=== PATIENT | female | born 2000 | race Caucasian/White ===

== ENCOUNTER 2020-02-21 12:27 | Outpatient (REF) | payer MEDICAID, SELFPAY | END 2020-02-21 12:28 | disposition home or self-care (01) | LOC: HO.LAB 12:27 | PROVIDERS: Visit Provider Internal Medicine | DX: Z20.828 Contact with and (suspected) exposure to other viral communicable diseases (principal) | CPT/HCPCS: C9803; U0003 ==

== ENCOUNTER 2020-06-16 09:23 | Emergency (ER) | payer MEDICAID, SELFPAY ==
[2020-06-16 09:33] VITALS: BP 151/73; PULSE 110; RESP 18; TEMP 37.2; O2SAT 100; BMI 22.6
[2020-06-16] MEDS: Diphth,Pertus(ACell),Tet Adult 0.5 ML SYRINGE IM (10:13)
[2020-06-16] MEDS: Lidocaine HCl 2 % MPF 5 ML VIAL INFILTRATI (10:13)
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
[2020-06-16] MEDS: Acetaminophen 325 MG TABLET 650 MG PO (10:44)
== END 2020-06-16 10:47 | disposition home or self-care (01) ==
PROVIDERS: Emergency Provider Emergency Medicine; PCP Family Medicine
DX: S01.01XA Laceration without foreign body of scalp, initial encounter (principal); G44.309 Post-traumatic headache, unspecified, not intractable; W51.XXXA Accidental striking against or bumped into by another person, initial encounter; Y93.9 Activity, unspecified; Y92.009 Unspecified place in unspecified non-institutional (private) residence as the place of occurrence of the external cause; Y99.9 Unspecified external cause status
CPT/HCPCS: 12001; 90471; 90715; 99283; 99284

== ENCOUNTER 2020-06-29 14:54 | Emergency (ER) | payer MEDICAID, SELFPAY ==
[2020-06-29 15:24] VITALS: BP 106/62; PULSE 70; RESP 18; TEMP 36.8; O2SAT 99; BMI 20.7
--- NOTE | 2020-06-29 15:28 | ED.WOUNDLAC ---
HPI - Wound/Laceration General Chief Complaint: Skin/Abscess/Foreign Body Stated Complaint: SUTURE REMOVAL Time Seen by Provider: 06/29/20 15:28 Source: patient Mode of arrival: ambulatory Limitations: no limitations History of Present Illness HPI narrative: Scalp laceration repaired with 4 bo on June 16 here as instructed for staple removal to the scalp has no complaints. Has been doing well. Onset (ago): day(s) Location: scalp Place: home Patient tetanus UTD: Yes Context: accidental Associated symptoms: none Related Data Allergies Allergy/AdvReac Type Severity Reaction Status Date / Time No Known Allergies Allergy Verified 06/16/20 09:36 Review of Systems Review of Systems: Constitutional: No Weight loss, No Fever, No Chills, No Night Sweats, No Fatigue, No Malaise ENT/Mouth: No Hearing loss, No Ear Pain, No Nasal Congestion, No Sinus Pain, No Hoarseness, No sore throat, No Rhinorrhea, No Swallowing Difficulty Eyes: Negative Cardiovascular: Negative Respiratory: Negative Gastrointestinal: Negative Genitourinary: Negative Musculoskeletal: No joint pain, No Myalgias, No Joint Swelling Skin: No Skin Lesions, No rash Neuro: No Weakness, No Numbness, No Paresthesias, No Loss of Consciousness, No Dizziness, No Headache Psych: No Social Issues Heme/Lymph: Negative negative No Polyuria, No Polydipsia, No Temperature Intolerance Yes all other systems are reviewed and are negative [facility] Past Medical History Medical History (Updated 06/29/20 @ 15:31 by Marcelo Harmon NP) No known health problems Social History Social History Advance Directives: No Advance Directives Information Provided: No Physical Exam Vital Signs: Vital Signs: Last Vital Signs Temp 98.3 F 06/29/20 15:24 Pulse 70 06/29/20 15:24 Resp 18 06/29/20 15:24 BP 106/62 06/29/20 15:24 Pulse Ox 99 06/29/20 15:24 Body Mass Index 20.7 Reviewed Const: General: cooperative and healthy appearing; No acute distress or intoxicated appearing Nutritional Appearance: average body habitus Orientation/consciousness: patient oriented x3 HENMT: Head: Yes normal to inspection Head images: 1. Bo to a well-healed appearing previously lacerated area. There are 4 ob intact. No induration, discharge, erythema, TTP. Ears: hearing grossly normal bilaterally Eyes: General: appearance normal, both eyes and all related structures Visual Soto: normal visual soto by confrontation Neck: Neck: Yes normal visual inspection, No positive Brudzinski's sign, No positive Kernig's sign and No tender Thyroid: Thyroid normal : General: Yes no CVA tenderness Back/Spine/Pelvis: Back: no CVA tenderness Skin: General skin exam: no rashes or lesions noted Neuro: General: patient oriented x3 Extrem: General: Yes normal to inspection Course Course Course Narrative: 4 bo removed from the scalp. Home care, return, follow-up instructions provided. No complaints. Stable for discharge. Discharge Plan Discharge Clinical Impression: Encounter for removal of bo Patient Disposition: Home, Self-Care Instructions: Stitches Removal (ED) Referrals: Krystyna aDly DO [Primary Care Provider] - 2 weeks
== END 2020-06-29 15:37 | disposition home or self-care (01) ==
PROVIDERS: Emergency Provider Emergency Medicine; PCP Family Medicine
DX: Z48.02 Encounter for removal of sutures (principal); S01.01XD Laceration without foreign body of scalp, subsequent encounter; X58.XXXD Exposure to other specified factors, subsequent encounter
CPT/HCPCS: 99283

== ENCOUNTER → 2020-09-23 10:08 | Outpatient (BNVA) | payer MEDICAID, SELFPAY | PROVIDERS: Visit Provider Advanced Practice Midwife | DX: N91.1 Secondary amenorrhea (principal); R63.6 Underweight | CPT/HCPCS: 81025; 99202 ==

== ENCOUNTER 2020-11-21 21:53 | Emergency (ER) | payer MEDICAID, SELFPAY ==
[2020-11-21 22:28] VITALS: BP 118/64; PULSE 84; RESP 16; TEMP 36.9; O2SAT 98; BMI 18.3
[2020-11-21 23:52] LABS: Influenza A PCR NEGATIVE (Negative); Influenza B PCR NEGATIVE (Negative); Resp Syncy Virus RNA Qual PCR NEGATIVE (Negative); SARS COV2 PCR INHOUSE NEGATIVE (Negative)
--- NOTE | 2020-11-22 00:06 | ED.URI ---
HPI - URI/Sore Throat General Chief Complaint: Upper Respiratory Symptoms Stated Complaint: flu like Time Seen by Provider: 11/21/20 23:23 Source: patient Mode of arrival: ambulatory Limitations: no limitations History of Present Illness HPI Narrative: 20 y/o healthy female presenting with nasal congestion, sore throat, dry cough and body aches for the last 1 week. She presents with her boyfriend who has similar symptoms. She has been taking OtC cold medication with brief improvement in her symptoms. She is eating and drinking normally. No fever, SOB or WALKER. She is not vaccinated against COVID-19. MD elicited complaint: cough, sore throat and nasal congestion Onset (ago): week(s) (1) Consistency: constant Severity: moderate Description of mucous: clear Able to tolerate fluids by mouth: Yes Exacerbating factors: exertion Relieving factors: OTC cold medicine and rest Context: sick contacts Associated symptoms: chills, myalgias, rhinorrhea, nasal congestion, sore throat and cough Treatments prior to arrival: none Related Data Home Medications Medication Instructions Recorded Confirmed No Known Home Meds 09/23/20 09/23/20 Allergies Allergy/AdvReac Type Severity Reaction Status Date / Time No Known Allergies Allergy Verified 09/23/20 10:17 Review of Systems Review of Systems: Constitutional: No Fever, + Chills ENT/Mouth: + sore throat, + Rhinorrhea, No Swallowing Difficulty Eyes: No Eye Pain, No Swelling, No Redness Cardiovascular: No Chest Pain, No SOB, No Orthopnea, No Edema Respiratory: +Cough, No Sputum, No Wheezing, No dyspnea Gastrointestinal: No Nausea, No Vomiting, No Diarrhea, No abdominal Pain Genitourinary: No Dysuria, No Urinary Frequency, No Hematuria Musculoskeletal: No joint pain, + Myalgias Skin: No Skin Lesions, No rash Neuro: No Weakness, No Numbness, No Dizziness, + Headache Heme/Lymph: No Bruising, No Lymphadenopathy PMFSH Past Medical History Medical History No known health problems Social History Social History (Updated 09/23/20 @ 10:21 by Prema Shah CMA) Alcohol intake: current Alcohol intake frequency: holidays/special occasions only Patient Tobacco Use Status: Never used Tobacco Substance Use Type: Marijuana Advance Directives: No Advance Directives Information Provided: No Gender identity: Female Physical Exam Vital Signs: Vital Signs: Last Vital Signs Temp 98.4 F 11/21/20 22:28 Pulse 84 11/21/20 22:28 Resp 16 11/21/20 22:28 BP 118/64 11/21/20 22:28 Pulse Ox 98 11/21/20 22:28 Body Mass Index 18.3 Appearance: Alert. Oriented X3. No acute distress. Eyes: Pupils equal, round and reactive to light. ENT: Pharynx with mild generalized erythema, tonsils without swelling, ertythema or exudate, uvula midline. nasal turbinates erythematous with clear nasal discharge. Neck: Normal inspection. Neck supple. CVS: Normal heart rate and rhythm. Pulses normal. Respiratory: No respiratory distress. Breath sounds normal. Skin: Skin warm and dry. Normal skin color. Normal skin turgor. No rashes. Extremities: No lower extremity edema. No calf tenderness Neuro: Oriented X 3. Nonfocal. steady gait Course Course Course Narrative: 20 yo female presenting with URI symptoms x1 week. +sick contacts. Her VS are normal. She is NEGATIVE for COVID, FLu and RSV. Her symptoms are most likely viral and she is stable for discharge with supportive care. MDM - URI/Sore Throat Lab Data Labs: Lab Results 11/21/20 Range/Units 23:00 Coronavirus (PCR) NEGATIVE (Negative) Influenza Type A (PCR) NEGATIVE (Negative) Influenza Type B (PCR) NEGATIVE (Negative) RSV RNA Qual (PCR) NEGATIVE (Negative) Critical Care Time Critical Care Time Critical Care Time: No Discharge Plan Discharge Clinical Impression: Upper respiratory infection Qualifiers: URI type: unspecified viral URI Qualified Code(s): J06.9 - Acute upper respiratory infection, unspecified Patient Disposition: Home, Self-Care Instructions: Upper Respiratory Infection (ED) Additional Instructions: You were negative for COVID-19, Flu and RSV. Recommend getting over the counter Sudafed for your nasal congestion - you need to ask the pharmacist for this. Rest and drink plenty of fluids. Take over the counter cold/flu medications as needed for your symptoms. Follow up with your doctor next week. If you develop new or worsening symptoms call 911 or come back to the ER for further evaluation. Prescriptions: No Action No Known Home Meds RF: 0
== END 2020-11-22 00:43 | disposition home or self-care (01) ==
PROVIDERS: Emergency Provider Emergency Medicine; PCP Family Medicine
DX: J06.9 Acute upper respiratory infection, unspecified (principal); Z20.822 Contact with and (suspected) exposure to COVID-19; J02.9 Acute pharyngitis, unspecified
CPT/HCPCS: 0241U; 36415; 99283

== ENCOUNTER 2023-03-07 09:10 | Outpatient (REF) | payer MEDICAID, SELFPAY ==
[2023-03-07 12:25] LABS: HCG Quantitative 19626 mIU/mL
== END 2023-03-07 09:11 | disposition home or self-care (01) ==
LOC: HO.HHCL 09:10
PROVIDERS: Visit Provider Family Medicine
DX: Z34.90 Encounter for supervision of normal pregnancy, unspecified, unspecified trimester (principal)
CPT/HCPCS: 36415; 84702

== ENCOUNTER 2025-01-27 14:26 | Outpatient (REF) | payer MEDICAID, SELFPAY ==
--- NOTE | ~2025-01-27 | XR_ITS ---
EXAMINATION: XR ABDOMEN COMPLETE CLINICAL INDICATION: PAIN OF UPPER ABDOMEN,RIGHT FLANK TENDER;, NODULE.PT STATES SHE HAS NOTICED THIS BUMP IN OCTOBER COMPARISON: None available. TECHNIQUE: 2 views of the abdomen, upright and supine. FINDINGS: There is gas throughout the colon and small bowel stool in the rectum and sigmoid colon. There is also gas in the stomach. This is similar calcifications in the pelvis are likely phleboliths. No other calcifications are seen in the soft tissues. XR/XR abdomen 3V IMPRESSION: Unremarkable Electronically signed by: Mars Zepeda MD 01/27/2025 03:41 PM EST
--- OUTSIDE RECORDS SUMMARY | 2025-01-27 13:15 | XMS_ITS | Encounter Summary ---
Author Organization [employer] Address [address] [facility] [address] [place] [address] Care Team Providers Care Title Assistant Name Role Phone Krystyna Daly Primary Care Provider + [phone] Encounter Details Date Type Department Care Team ([facility] st Contact Info) Description 01/27/2025 1:15 PM EST Office Visit [facility] MED[facility]INE [address] [place] [address] Lisa Tyler MD [address] [place], [place] [phone] Pain of upper abdomen (Primary Dx); DUB (dysfunctional uterine bleeding) Social History Tobacco Use Types Packs/Day Years Used Date Smoking Tobacco: Never Smokeless Tobacco: Never Alcohol Use Standard Drinks/Week Comments Never 0 (1 standard drink = 0.6 oz pur e alcohol) Depression Answer Date Recorded Patient Health Questionnaire-9 Score 1 12/11/2023 Patient Health Questionnaire-9 Score 1 12/11/2023 Last PHQ-9: Questionnaire Data Not on file 0 12/11/2023 Housing Stability Answer Date Recorded What is your housing situation today? I have sacha crow 12/04/[address] you li ve. Do you have problems with any of the following? None of the above 12/04/2023 Food Insecurity Answer Date Recorded Within the past 12 months, y ou worried that your food would run out before you got money to buy more: Never True 12/04/2023 Within the past 12 months,th e food you bought just didn't last and you didn't have enough money to get more: Never True Transportation Answer Date Recorded In the past 12 months, has l ack of transportation kept you from medical appts, meetings, work or from getting things needed for daily living? No 12/04/2023 Utilities Answer Date Recorded In the past 12 months, has t he electric, gas, oil or water company threatened to shut off services in your home? No 12/04/2023 Depression Answer Date Recorded Patient Health Questionnaire-2 Score 0 12/11/2023 Internet Access Answer Date Recorded Internet Access Q1 Yes 12/04/2023 Internet Access Q2 Not on file 12/04/2023 Comments Unknown Sex and Gender Information Value Date Recorded Sex Assigned at Female 01/17/2022 10:17 AM EDT Legal Sex Female 10:17 AM EDT Gender Identity Female 01/17/2022 10:17 AM EDT Sexual Orientation Straight 01/17/2022 10 :17 AM EDT documented as of this encounter Last Filed Vital Signs Vital Sign Reading Time Taken Comments Blood Pressure 108/58 01/27/2025 1:43 PM EST Pulse 77 01/27/2025 1:43 PM EST Temperature 36.9 C (98.5 F) 01/27/2025 1:43 PM EST Respiratory Rate 14 01/27/2025 1:43 PM EST Oxygen Saturation 98% 01/27/2025 1:43 PM EST Inhaled Oxygen Concentration - - Weight 45.4 kg (100 lb) 01/27/2025 1:43 PM EST Height 154.9 cm (5' 1 ) 01/27/2025 1:43 PM EST Body Mass Index 18.89 01/27/2025 1:43 PM EST documented in this encounter Plan of Treatment Not on file documented as of this encounter Procedures Procedure Name Priority Date/Time Associated Diagnosis Comments XR ABDOMEN 3+ VIEWS Routine 01/27/2025 2 :57 PM EST Pain of upper abdomen POCT , URINE Routine 01/27/2025 2:20 PM EST Pain of upper abdomen DUB (dysfunctional uterine bleeding) documented in this encounter Results * XR Abdomen 3+ Views (01/27/2025 2:57 PM EST) Anatomical Region Laterality Modality Abdomen Radiographic Nilsa ging 01/27/2025 2:57 PM EST Narrative 01/27/2025 3:44 PM EST [facility] [address] [place] [address] XRay Report Signed Patient: Elida Mart MR#: [id number] [birth year] : 2000 Acct:[id number] Age/Sex: 24 / F ADM Date: 01/27/25 Loc: HO.HHCX Attending Dr: Lisa Tyler MD Ordering Physician: Lisa Tyler MD Date of Service: 01/27/25 Procedure(s): XR abdomen 3V Accession Number(s): [id number] cc: Lisa Tyler MD; Krystyna Daly DO Reason for Exam: right flank tender nodule EXAMINATION: XR ABDOMEN COMPLETE CLINICAL INDICATION: PAIN OF UPPER ABDOMEN,RIGHT FLANK TENDER;, NODULE.PT STATES SHE HAS NOTICED THIS BUMP IN OCTOBER COMPARISON: None available. TECHNIQUE: 2 views of the abdomen, upright and supine. FINDINGS: There is gas throughout the colon and small bowel stool in the rectum and sigmoid colon. There is also gas in the stomach. This is similar calcifications in the pelvis are likely phleboliths. No other calcifications are seen in the soft tissues. XR/XR abdomen 3V IMPRESSION: Unremarkable Electronically signed by: Mars Zepeda MD 01/27/2025 03:41 PM EST Dictated By: Mars Zepeda MD Signed By: <Electronically signed by Mars Zepeda MD in OV> 01/27/25 1541 DD/ 1457 TD/TT: 01/27/25 1505 [employer] Officer: Procedure Note Donotuseinterpreter, Image - 01/27/2025 [facility] [address] [place] [address] XRay Report Signed Patient: Elida Mart JMR#: [id number] [birth year] : 2000Acct:[id number] Age/Sex: 24 / FADM Date: 01/27/25 Loc: HO.HHCX Attending Dr: Lisa Tyler MD Ordering Physician: Lisa Tyler MD Date of Service: 01/27/25 Procedure(s): XR abdomen 3V Accession Number(s): [id number] cc: Lisa Tyler MD; Krystyna Daly DO Reason for Exam: right flank tender nodule EXAMINATION: XR ABDOMEN COMPLETE CLINICAL INDICATION: PAIN OF UPPER ABDOMEN,RIGHT FLANK TENDER;, NODULE.PT STATES SHE HAS NOTICED THIS BUMP IN OCTOBER COMPARISON: None available. TECHNIQUE: 2 views of the abdomen, upright and supine. FINDINGS: There is gas throughout the colon and small bowel stool in the rectum and sigmoid colon. There is also gas in the stomach. This is similar calcifications in the pelvis are likely phleboliths. No other calcifications are seen in the soft tissues. XR/XR abdomen 3V IMPRESSION: Unremarkable Electronically signed by: Mars Zepeda MD 01/27/2025 03:41 PM EST RP Dictated By: Mars Zepeda MD Signed By: <Electronically signed by Mars Zepeda MD in OV> 01/27/25 1541 DD/ 1457 TD/TT: 01/27/25 [employer] Officer: Lisa Tyler MD IMG XR PROCEDURES Edited Result - Final * POCT Urine (01/27/2025 2:20 PM EST) Preg Test, Ur Negative Negative, Indeterminate, None Detected, Invalid, Specimen unsatisfactory for evaluation, Weakly Positive, 2+ QC Media Lot # [id number] Lot# Expiration Date [id number] Urine 01/27/2025 2:20 PM EST Lisa Tyler MD POINT OF CARE TEST ENTER /EDIT ORDERABLES Final Result documented in this encounter Visit Diagnoses Diagnosis Pain of upper abdomen- Primary DUB (dysfunctional uterine bleeding) Other disorder of menstruation and other abnormal bleeding from female genital tract documented in this encounter Additional Health Concerns Assessment Noted Time PHQ-9 Depression Total Score: 1 12/11/19 24 2:31 PM EDT documented as of this encounter Care Teams Title Assistant Relationship Specialty Start Date End Date Krystyna Daly DO [address] [place] [address] PCP - General Family Medicine 05/18/18 documented as of this encounter
--- OUTSIDE RECORDS SUMMARY | 2025-01-27 16:46 | XMS_ITS | Encounter Summary ---
Author Organization [employer] Address [address] [facility] [address] [place] [address] Care Team Providers Care Cooker Mechanic Name Role Phone Krystyna Daly DO Primary Care Provider + [phone] Reason for Visit * Reason Onset Date Comments Referral 03/17/2023 Encounter Details Date Type Department Care Team ([facility] st Contact Info) Description 03/17/2023 Telephone [facility] MEDICINE [address] [place], [place] [phone] Krystyna Daly DO [address] [place], [place] [phone] Referral Social History Tobacco Use Types Packs/Day Years Used Date Smoking Tobacco: Never Smokeless Tobacco: Never Housing Stability Answer Date Recorded What is your housing situation today? I have sacha crow 01/17/[address] you li ve. Do you have problems with any of the following? None of the above 01/17/2023 Food Insecurity Answer Date Recorded Within the past 12 months, y ou worried that your food would run out before you got money to buy more: Never True 01/17/2023 Within the past 12 months,th e food you bought just didn't last and you didn't have enough money to get more: Never True Utilities Answer Date Recorded In the past 12 months, has t he electric, gas, oil or water company threatened to shut off services in your home? No 01/17/2023 Comments Unknown Sex and Gender Information Value Date Recorded Sex Assigned at Female 01/17/2022 10:17 AM EDT Legal Sex Female 10:17 AM EDT Gender Identity Female 01/17/2022 10:17 AM EDT Sexual Orientation Straight 01/17/2022 10 :17 AM EDT documented as of this encounter Miscellaneous Notes * Telephone Encounter - Jaime Mcclain - 03/17/2023 8:42 AM EST Tc from patient calling to request the referral for [employer]ENT to be sent to [facility] [employer] [facility] at [address] [place] [address] documented in this encounter Plan of Treatment Not on file documented as of this encounter Visit Diagnoses Not on filedocumented in this encounter Care Teams Cooker Mechanic Relationship Specialty Start Date End Date Krystyna Daly DO [address] [place] [id number] PCP - General Family Medicine 05/18/18 documented as of this encounter
--- OUTSIDE RECORDS SUMMARY | 2025-01-27 16:46 | XMS_ITS | Encounter Summary ---
Author Organization [employer] Address [address] [place] [address] 7 [place] [address] Care Team Providers Care Development Technician Name Role Phone Krystyna Daly DO Primary Care Provider + [phone] Reason for Visit * Reason Onset Date Comments Nurse Triage 01/22/2025 Encounter Details Date Type Department Care Team ([facility] st Contact Info) Description 01/22/2025 Telephone [facility] [address] [place], [place] [phone] Krystyna Daly DO [address] [place] [address] Nurse Triage Social History Tobacco Use Types Packs/Day Years Used Date Smoking Tobacco: Never Smokeless Tobacco: Never Depression Answer Date Recorded Patient Health Questionnaire-9 [...] encounter Miscellaneous Notes * Telephone Encounter - Karen Ashley RN - 01/27/2025 9:00 AM EST TC placed to pt. Informed pt. PCP is out for today's sick appointment and agrees to r/s to today at1:15pm with Dr. Tyler * Telephone Encounter - Jackie Hernandez RN - 01/22/2025 12:35 PM EST Return call placed to the pt in regard to reported skin lump. The pt states that ever since giving around a year ago she has been experiencing a hard bump located on the right rib. The lump hasnot grown in size and is not red, draining and pain is minimal. Aggravating factors include laying on it. Pain is minimal and only rated around a 4/10. Pt described the feeling as something going into my body every time I put pressure on it. The pt was looking to schedule a PE with PCP but advised that a sick onsite would be easier to schedule and more appropriate to address current concerns. Thept was agreeable to scheduling with PCP on 01/27 for further evaluation of skin lump. Protocol Used: Skin Lump or Localized Swelling (Adult) Protocol-Based Disposition: See in Office or Video Visit within 3 Days Video visit not offered Positive Triage Questions: * Small swelling or lump present > 1 week * Patient wants to be seen * Small swelling or lump present < 1 week * All higher-acuity triage questions were negative * Telephone Encounter - Wilianaaron Hill - 01/22/2025 12:00 PM EST Symptom: Skin Lump Outcome: Schedule an appointment to be seen within 3 days Reason: Caller denied all higher acuity questions Please contact pt at [phone] documented in this encounter Plan of Treatment Not on file documented as of this encounter Visit Diagnoses Not on filedocumented in this encounter Additional Health Concerns Assessment Noted Time PHQ-9 Depression Total Score: 1 12/11/19 24 2:31 PM EDT documented as of this encounter Care Teams Development Technician Relationship Specialty Start Date End Date Krystyna Daly DO [address] [place] [address] PCP - General Family Medicine 05/18/18 documented as of this encounter
--- OUTSIDE RECORDS SUMMARY | 2025-01-27 16:46 | XMS_ITS | Clinical Summary ---
Author Organization [employer] Address [address] [place] [address] [address] [place] [address] Care Team Providers Care Parts Person Name Role Phone Krystyna Daly DO Primary Care Provider Allergies No known active allergies Medications Vit-Fe Fumarate-FA ( Vitamins) 28-0.8 MG tablet TAKE 1 TABLET BY MOUTH DAILY IN THE MORNING 90 tablet 3 Active Additional Information Patient not taking.Reported on 01/27/2025 Active Problems Problem Noted Date Diagnosed Date Pain of upper abdomen 01/27/2025 DUB (dysfunctional uterine bleeding) 01/27/2025 Annual physical exam 12/11/2023 Assessment & Plan (12/11/2023 2:57 PM EDT): -annual exam done today 11/2023 for work -advised pt to take prenatals while not taking now -2021 Quantiferon neg ,-07/2022 MMRV immune -pap smear 07/2022 Neg --has apt w [employer] this week pr pt -contraception: none, refuse contraception now -advised to discuss w [employer] ,advised condom use -vaccines s/p hep A x 2, hep B x 3,HPV x2, meningococcal vaccine x2, MMRx2,COVID 19 x2,varicella x2, Tdap 07/2023 -- Flu and COVID 19 vaccine offered today -refused both -labs x annual exam today -pt agreed to have STI testing including HIV to have for baseline --will call pt w results 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 Assessment & Plan (12/11/2023 2:57 PM EDT): congenital nevus,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 A derm referral done today. Eczema may flare through the winter with cold weather or in the summer heat, or at times of stress Depression 08/05/2022 Assessment & Plan (12/11/2023 2:57 PM EDT): PHQ9 0 ,KELLY 0,reports feeling well now Resolved Problems Problem Noted Date Diagnosed Date Resolved Date Unintentional weight loss 08/05/2022 Underweight 08/05/2022 08/05/2022 Headache 02/16/2017 08/05/2022 Overview (08/05/2022): 02/16/17- to keep diary and return in a month Encounters Date Type Department Care Team Description 01/27/2025 1:15 PM EST Office Visit [facility] [address] [place] [phone] Lisa Tyler MD Pain of upper abdomen (Primary Dx); DUB (dysfunctional uterine bleeding) 01/27/2025 Travel 01/22/2025 Telephone [facility] [address] [place] [phone] Krystyna Daly DO Nurse Triage from Last 3 Months Immunizations Immunization Administration Dates Next Due DTaP 09/02/2004, 2,02/20/2001,12/15,2000 DTaP / HiB / IPV 01/09/2002, 1,2000,10/05 HPV 9-Valent 12/26/2014,10/04/2013 HPV, Quadrivalent 10/04/2013 Hep A, Unspecified 06/27/2012 Hep A, ped/adol, 2 dose 06/27/2012,04/30/2009 Hep B, Adolescent or Pediatric 05/21/2001,2000,2000 Hep B, Unspecified 05/21/2001,2000 Hib (HbOC) 01/09/2002, 1,2000,10/05 IPV 09/02/2004, 1,2000,10/05 Influenza injectable quadriv alent preservative free 05/23/2019 MMR 09/02/2004,01/09/2002 Meningococcal MCV4P ACYW-135 02/16/2017,06/28/19 13 Novel [id number], preservative-free 04/30/2009 PPD Test 08/14/2001 Pneumococcal Conjugate PCV 13 2002 ,02/20/2001,2000,10/05 Pneumococcal Conjugate PCV 7 2002, 02/20/2001,2000,10/05 Tdap 08/11/2023,06/16/2020,06/27/2012 Varicella 04/30/2009,08/14/2001 Family History Medical History Relation Name Comments Asthma Brother Depression Father Coronary artery disease Maternal Grandfather Anxiety disorder Mother Bipolar disorder Mother Depression Mother Relation Name Status Comments Brother Father Maternal Grandfather Mother Social History Tobacco Use Types Packs/Day Years Used Date Smoking Tobacco: Never Smokeless Tobacco: Never Tobacco Cessation:Counseling Given: Not Answered Alcohol Use Standard Drinks/Week Comments Never 0 (1 standard drink = 0.6 oz pur e alcohol) Depression Answer Date Recorded Patient Health Questionnaire-9 Score 1 12/11/2023 Patient Health Questionnaire-9 Score 1 12/11/2023 Last PHQ-9: Questionnaire Data Not on file 0 12/11/2023 Housing Stability Answer Date Recorded What is your housing situation today? I have sacha sing 12/04/[address] you li [...] Orientation Straight 01/17/2022 10 :17 AM EDT Last Filed Vital Signs Vital Sign Reading [...] Mass Index 18.89 01/27/2025 1:43 PM EST Plan of Treatment Health Maintenance Due Date Last Done Comments Dental Oral Exam 2000 Dental Prophylaxis 2000 Dental X-Ray: Bitewings 2000 Dental X-Ray: Full Mouth 2000 Disability Screening 2000 Alcohol/Substance Use Screening 2012 Family Planning (PISQ) 07/27/2015 COVID-19 Vaccine ( season) 2024 03/15/2021, 11/22/2020 Influenza Vaccine (#1) 2024 05/23/2019, 2009 SDOH Screening 12/03/2024 12/04/2023 Depression Screening 12/10/2024 12/11/2023, 12/11/19 24 Pap Smear 08/05/2025 08/05/2022, 08/05/2022 Tobacco Screening 01/27/2026 01/27/2025 DTaP/Tdap/Td Vaccines (9 - Td or Tdap) 08/10/2033 08/11/2023, 06/16/2020, 06/27/2012, Additional history exists Zoster Vaccines (1 of 2) 2050 RSV Patients and Patients Aged 60 years or older (1 - 1-dose 75+ series) 07/27/2075 Hepatitis B Vaccines Completed 05/21/2001, 05/21/2001, 2000, Additional history exists HIB Vaccines Completed 01/09/2002, 12/19, 02/20/2001, Additional history exists Pneumococcal Vaccine: Pediatrics (0 to 5 Years) and At-Risk Patients (6 to 49) Years Aged Out 2002, 2002, 02/20/2001, Additional history exists No longer eligible based on patient's age to complete this topic IPV Vaccines Completed 09/02/2004, 12/19, 02/20/2001, Additional history exists Hepatitis A Vaccines Completed 06/27/2012, 06/27/2012, 04/30/2009 HPV Vaccines Completed 12/26/2014, 09/17, 10/04/2013 Meningococcal Vaccine Completed 02/16/2017, 013 HIV Screening Completed 08/05/2022, 07/18, 2021 Hepatitis C Screening Completed 08/05/2022, 022 Meningococcal B Vaccine Aged Out No l onger eligible based on patient's age to complete this topic RSV under 20 months Aged Out No longe r eligible based on patient's age to complete this topic Rotavirus Vaccines Aged Out No longer eligible based on patient's age to complete this topic Procedures Procedure Name Priority Date/Time Associated Diagnosis Comments XR ABDOMEN 3+ VIEWS Routine 01/27/2025 2 :57 PM EST Pain of upper abdomen POCT , URINE Routine 01/27/2025 2:20 PM EST Pain of upper abdomen DUB (dysfunctional uterine bleeding) HEPATITIS C AB W/RFL RNA, PCR W/RFL GENOTYPE,LIPA Routine 08/05/2022 9:45 AM EDT Pap smear for cervical cancer screening HIV 1 RNA, QUANTITATIVE REAL TIME PCR Routine 08/05/2022 9:45 AM EDT Pap smear for cervical cancer screening THINPREP IMAGING PAP REFLEX HPV DNA Routine 08/05/2022 12:00 AM EDT from Last 3 Months or Most Recently Relevant to Health Maintenance Results * XR Abdomen 3+ Views (01/27/2025 2:57 PM EST) Anatomical Region Laterality Modality Abdomen Radiographic Nilsa ging 01/27/2025 2:57 PM EST Narrative 01/27/2025 3:44 PM EST [address] [address] XRay Report Signed Patient: Elida Mart MR#: [id number] 69 : 2000 Acct:[id number] Age/Sex: 24 / F ADM Date: 01/27/25 Loc: HO.HHCX Attending Dr: Lisa Tyler MD Ordering Physician: Lisa Tyler MD Date of Service: 01/27/25 Procedure(s): XR abdomen 3V Accession Number(s): [id number] cc: Lisa Tyler MD; Krystyna Daly DO [...] 01/27/25 1541 DD/ 1457 TD/TT: 01/27/25 1505 Girls Tennis Coach: Procedure Note Donotuseinterpreter, Image - 01/27/2025 [place] [address] XRay Report Signed Patient: Elida Mart JMR#: [id number] 69 : 2000Acct:[id number] Age/Sex: 24 / FADM Date: 01/27/25 Loc: HO.HHCX Attending Dr: Lisa Tyler MD Ordering Physician: Lisa Tyler MD Date of Service: 01/27/25 Procedure(s): XR abdomen 3V Accession Number(s): [id number] cc: Lisa Tyler MD; Krystyna Daly DO [...] 01/27/25 1541 DD/ 1457 TD/TT: 01/27/25 1505 Girls Tennis Coach: Lisa Tyler MD IMG XR PROCEDURES Edited Result - Final * POCT Urine (01/27/2025 2:20 PM EST) Preg Test, Ur Negative Negative, Indeterminate, None Detected, Invalid, Specimen unsatisfactory for evaluation, Weakly Positive, 2+ QC Media Lot # [id number] Lot# Expiration Date [id number] Urine 01/27/2025 2:20 PM EST Lisa Tyler MD POINT OF CARE TEST ENTER /EDIT ORDERABLES Final Result * Hepatitis C Antibody with Reflex to HCV RNA,PCR w/Reflex to Genotype, LiPA (08/05/2022 9:45 AM EDT) Hepatitis C Antibody NON-REACT CALLI NON-REACT CALLI [facility] Index 0.11 <1.00 [facility] Comment: HCV antibody was non-reactive. There is no laboratory evidence of HCV infection. In most cases, no further action is required. However, if recent HCV exposure is suspected, a test for HCV RNA (test code 49544) is suggested. For additional information, please refer to http://education.[employer].com.Socialite/faq/SUC043 (This link is being provided for informational/ educational purposes only.) 08/05/2022 9:45 AM EDT 08/05/2022 9:45 AM EDT Narrative [facility] - 08/09/2022 4:46 PM EDT FASTING:YES FASTING: YES Krystyna Daly DO LAB BLOOD ORDERABLES Final R esult [facility] [address], [place] [address] [facility] [employer] [address] [place] [address] * HIV-1 RNA, Quantitative, Real-Time PCR (08/05/2022 9:45 AM EDT) Pathologist [facility] HIV 1 RNA, QN PCR NOT DETECTED NOT DETECTED copies/mL [facility] [place] [facility] HIV 1 RNA, QN PCR NOT DETECTED NOT DETECTED Log copies/mL [facility] [place] [facility] Comment: This test was performed using Real-Time Polymerase Chain Reaction. Reportable Range: 20 copies/mL to 10,000,000 copies/mL (1.30 log copies/mL to 7.00 log copies/mL). Blood Venous blood specimen / Unknown 08/05/2022 9:45 AM EDT 08/05/2022 9:45 AM EDT [facility] 08/09/2022 4:46 PM EDT FASTING:YES FASTING: YES Krystyna Daly DO LAB BLOOD ORDERABLES Final R esult DANIKA Ramirez [address], [place] [address] [facility] [place] [facility] [address] [place] [phone] * ThinPrep Pap with Reflex to HPV DNA (08/05/2022 12:00 AM EDT) Pathologist [facility] Clinical Information: NONE GIVEN [facility] [place] [employer] LMP: NONE GIVEN [facility] [place] [employer] Prev. PAP: NONE GIVEN [facility] [place] [employer] Prev. BX: NONE GIVEN [facility] [employer] [facility] SOURCE: NONE GIVEN [facility] Statement Of Adequacy: [facility] [employer] Comment: Satisfactory for evaluation. Endocervical/transformation zone component present. Interpretation/ Result: Negative for intraepithelial lesion or malignancy. [facility] [place] [facility] Cytotechnologis t: [facility] [place] [employer] Comment: KF, CT(ASCP) CT screening location: [address] [address] Review [employer]otechnologis t: [facility] Comment: LOUANN, CT(ASCP) CT screening location: [address] [address] (Always Message) [employer] Comment: EXPLANATORY NOTE: The Pap is a screening test for cervical cancer. It is not a diagnostic test and is subject to false negative and false positive results. It is most reliable when a satisfactory sample, regularly obtained, is submitted with relevant clinical findings and history, and when the Pap result is evaluated along with historic and current clinical information. 08/05/2022 08/08/2022 7:4 4 AM EDT Narrative [facility] - 08/26/2022 3:00 PM EDT FASTING: UNKNOWN Krystyna Daly DO LAB CYTOLOGY ORDERABLES Thania spear Result [facility] [address], [place] [address] [facility] [place] [employer] [address] [place] [address] from Last 3 Months or Most Recently Relevant to Health Maintenance Insurance [employer] Care Teams Parts Person Relationship Specialty Start Date End Date Krystyna Daly DO [address] [place] [phone] PCP - General Family Medicine 05/18/18
--- OUTSIDE RECORDS SUMMARY | 2025-01-27 16:46 | XMS_ITS | Encounter Summary ---
Author Organization [employer] Address [address] [facility] 7[address] [place] [address] Care Team Providers Care Specialized Language Instructor Name Role Phone Krystyna Daly DO Primary Care Provider + [phone] Encounter Details Date Type Department Care Team (Latest Contact Info) Description 01/27/2025 Travel Social History Tobacco Use Types Packs/Day Years [...] AM EDT documented as of this encounter Plan of Treatment Not on file documented as of this encounter Visit Diagnoses Not on filedocumented in this encounter Additional Health Concerns Assessment Noted Time PHQ-9 Depression Total Score: 1 12/11/19 24 2:31 PM EDT documented as of this encounter Care Teams Specialized Language Instructor Relationship Specialty Start Date End Date Krystyna Daly DO [address] [place] [address] PCP - General Family Medicine 05/18/18 documented as of this encounter
== END 2025-01-27 14:27 | disposition home or self-care (01) ==
LOC: HO.HHCX 14:26
PROVIDERS: PCP Family Medicine; Visit Provider Internal Medicine
DX: R10.10 Upper abdominal pain, unspecified (principal)
CPT/HCPCS: 74021

== ENCOUNTER → 2025-01-27 14:29 | Outpatient (BNV) | payer MEDICAID, SELFPAY | PROVIDERS: PCP Family Medicine; Visit Provider Radiology Diagnostic Radiology | DX: R10.10 Upper abdominal pain, unspecified (principal) | CPT/HCPCS: 74021 ==